=== PATIENT | male | born 1995 | race Caucasian/White ===

== ENCOUNTER 2023-03-01 10:16 | Emergency (ER) | payer BC, SELFPAY ==
[2023-03-01 10:27] VITALS: BP 139/86; BP 140/96; PULSE 70; PULSE 76; RESP 14; TEMP 36.7; O2SAT 95; O2SAT 96; BMI 34.4
--- NOTE | 2023-03-01 10:47 | ED.DIZZY ---
HPI - Dizziness General Chief Complaint: Dizziness Stated Complaint: ONSET DIZZINESS Time Seen by Provider: 03/01/23 10:27 Source: patient and EMS Mode of arrival: EMS Limitations: no limitations History of Present Illness HPI Narrative: 27-year-old male who is otherwise healthy came in by ambulance for evaluation of sudden onset of multiple episodes of near-syncope. 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 Patient was at his normal health baseline until this episode happened. No fever, no chills, no chest pain, no headache, no recent sickness, no sick contacts. Patient recently traveled from [facility]. Related Data Allergies Allergy/AdvReac Type Severity Reaction Status Date / Time No Known Allergies Allergy Verified 03/01/23 10:39 Review of Systems Review of Systems: All other systems are reviewed and are negative Constitutional: Reports as per HPI and Reports no additional constitutional complaints Eyes: Reports as per HPI and Reports no additional eye complaints Reports system reviewed and no additional complaints, except as documented Cardiovascular: Reports as per HPI and Reports no additional cardiovascular complaints Respiratory: Reports as per HPI and Reports no additional respiratory complaints Gastrointestinal: Reports as per HPI and Reports no additional gastrointestinal complaints Genitourinary: Reports no additional female genitourinary complaints Musculoskeletal: Reports no additional musculoskeletal complaints Skin/Breast: Reports system reviewed and no additional complaints, except as docu Psychiatric: Reports no additional psychiatric complaints Endocrine: Reports no additional endocrine complaints Hematologic/Lymphatic: Reports no additional hematologic/lymphatic complaints Allergic/Immunologic: Reports no additional allergic/immunologic complaints Reports system reviewed and no additional complaints, except as documented and Reports Abnormal speech present [facility] Social History Social History Advance Directives: No Advance Directives Information Provided: Yes Physical Exam Vital Signs: Vital Signs: Last Vital Signs Temp 98.1 F 03/01/23 13:43 Pulse 70 03/01/23 13:43 Resp 22 H 03/01/23 13:43 BP 122/78 03/01/23 13:43 Pulse Ox 97 03/01/23 13:43 O2 Del Method Room Air 03/01/23 13:43 BMI result Body Mass Index 34.4 Vital signs have been reviewed as appeared to be correct. Blood pressure normal. Heart rate normal. Respiration rate normal. Temperature normal. Oxygen saturation normal. Appearance: Alert. Oriented X3. No acute distress. Head: Normal external exam. Normocephalic. Atraumatic. No Kerr signs noted. No raccoon eyes noted Eyes: PERRLA. EOMI. Conjunctiva and sclera normal. Eyelids normal. ENT: TM's Normal. Pharynx normal. Uvula midline. Dry mucous membranes. No trismus noted. No drooling noted. No muffled voice noted. Neck: Normal inspection. Neck supple. FROM. No adenopathy. Thyroid Normal. No meningeal signs. No neck mass noted. CVS: Normal heart rate and rhythm. Heart sound normal. No murmurs noted. Pulses normal throughout. Respiratory: No respiratory distress. Painless inspiration. Breath sounds normal. No wheezes/rales/rhonchi noted. Chest nontender. No accessory muscle usage noted or decreased air movement noted. Abdomen: Soft and nontender. Bowel sounds normal in all 4 quadrants. No distention noted. No organomegaly noted. No visible injury noted. Back: No CVA tenderness. Full range of motion noted. Skin: Skin warm and dry. Normal skin color. Normal skin turgor. No rashes/lesions/lacerations noted. Extremities: No lower extremity edema. Extremities exhibit normal range of motion. Extremities nontender. Neuro: Oriented X 3. Cranial nerve exam: II-XII are grossly intact No motor deficit. No sensory deficit. Reflexes normal. Course Reevaluation(s) Reevaluation #1: Feels better after IV hydration, able to tolerate p.o. intake, patient was instructed to avoid hot with her and drink plenty of fluid. Time: 14:13 Medications Administered Discontinued Medications Generic Name Dose Route Start Last Admin Trade Name Freq PRN Reason Stop Dose Admin Sodium Chloride 1,000 mls @ 999 mls/hr 03/01/23 10:39 03/01/23 12:14 Ns IV 03/01/23 11:39 Infused .Q1H1M ONE Infusion Medical Decision Making Differential Diagnosis Differential Diagnoses: The differential diagnosis associated with the presentation includes (Dehydration, electrolyte abnormality, severe anemia, ACS, pulmonary embolism.) Admission/Observation Consideration of admission/observation: Escalation of care including admission/observation considered Lab Data MDM Lab Attestation statement: I reviewed the patient's lab results. 03/01/23 11:04 03/01/23 11:04 Labs: Lab Results 03/01/23 03/01/23 03/01/23 Range/Units 11:04 11:04 11:04 WBC 9.3 (4.8-10.8) X10*3/uL RBC 4.85 (4.60-5.80) X10*6/uL Hgb 15.1 (14.0-18.0) g/dl Hct 43.8 (42.0-52.0) % MCV 90.3 (80.0-98.0) fL MCH 31.1 (27.0-33.0) pg MCHC 34.5 (31.0-36.0) g/dl RDW 12.1 (11.0-16.0) % Plt Count 373 (160-400) X10*3/uL MPV 8.6 L (9.4-12.4) fL Immature Gran % (Auto) 0.4 (0.0-0.4) % Neut % (Auto) 62.9 (45-73) % Lymph % (Auto) 28.1 (20-40) % Bailey % (Auto) 6.5 (2-11) % Eos % (Auto) 1.2 (0-4) % Baso % (Auto) 0.9 (0-2) % Lymph # (Auto) 2.6 (1.2-4.9) X10*3/uL Bailey # (Auto) 0.6 (0.1-1.2) X10*3/uL Eos # (Auto) 0.1 (0.0-0.4) X10*3/uL Baso # (Auto) 0.1 (0.0-0.2) X10*3/uL Abs Immat Gran (auto) 0.04 H (0.00-0.03) X10*3/uL Absolute Neuts (auto) 5.9 (2.0-8.3) x10*3/uL Absolute Nucleated RBC 0.000 (0.0-0.012) X10*3/uL Nucleated RBC % (auto) 0.0 (0.0-0.2) /100WBC D-Dimer High Sensitivty NG/ML Sodium 141 (135-145) mmol/L Potassium 4.0 (3.3-5.1) mmol/L Chloride 105 (96-108) mmol/L Carbon Dioxide 24 (22-29) mmol/L Anion Gap 16 (12-20) BUN 12 (9-16) mg/dL Creatinine 1.15 (0.5-1.4) mg/dL Estim Creat Clear Calc 114.5 Estimated GFR > 60 Random Glucose 93 (60-115) mg/dL Calcium 10.2 (8.4-10.2) mg/dL Total Bilirubin 0.7 (0.0-1.0) mg/dL Direct Bilirubin 0.2 (0.0-0.5) mg/dL AST 32 (5-37) U/L ALT 58 H (0-40) U/L Alkaline Phosphatase 91 (39-117) U/L Troponin I High Sens < 2.7 (<3.5-35.0) ng/L B-Natriuretic Peptide (<100) pg/mL Total Protein 7.8 (6.5-8.0) g/dL Albumin 4.9 (3.5-5.0) g/dL Lipase 23 (8-78) U/L 03/01/23 03/01/23 Range/Units 11:04 12:26 WBC (4.8-10.8) X10*3/uL RBC (4.60-5.80) X10*6/uL Hgb (14.0-18.0) g/dl Hct (42.0-52.0) % MCV (80.0-98.0) fL MCH (27.0-33.0) pg MCHC (31.0-36.0) g/dl RDW (11.0-16.0) % Plt Count (160-400) X10*3/uL MPV (9.4-12.4) fL Immature Gran % (Auto) (0.0-0.4) % Neut % (Auto) (45-73) % Lymph % (Auto) (20-40) % Bailey % (Auto) (2-11) % Eos % (Auto) (0-4) % Baso % (Auto) (0-2) % Lymph # (Auto) (1.2-4.9) X10*3/uL Bailey # (Auto) (0.1-1.2) X10*3/uL Eos # (Auto) (0.0-0.4) X10*3/uL Baso # (Auto) (0.0-0.2) X10*3/uL Abs Immat Gran (auto) (0.00-0.03) X10*3/uL Absolute Neuts (auto) (2.0-8.3) x10*3/uL Absolute Nucleated RBC (0.0-0.012) X10*3/uL Nucleated RBC % (auto) (0.0-0.2) /100WBC D-Dimer High Sensitivty < 150 NG/ML Sodium (135-145) mmol/L Potassium (3.3-5.1) mmol/L Chloride (96-108) mmol/L Carbon Dioxide (22-29) mmol/L Anion Gap (12-20) BUN (9-16) mg/dL Creatinine (0.5-1.4) mg/dL Estim Creat Clear Calc Estimated GFR Random Glucose (60-115) mg/dL Calcium (8.4-10.2) mg/dL Total Bilirubin (0.0-1.0) mg/dL Direct Bilirubin (0.0-0.5) mg/dL AST (5-37) U/L ALT (0-40) U/L Alkaline Phosphatase (39-117) U/L Troponin I High Sens (<3.5-35.0) ng/L B-Natriuretic Peptide 10 (<100) pg/mL Total Protein (6.5-8.0) g/dL Albumin (3.5-5.0) g/dL Lipase (8-78) U/L Independent Interpretation I performed an independent interpretation of an: Plain X-Ray (Chest: No acute intra thoracic pathology.) Radiology Impression Discussion of test interpretation with radiology: I have reviewed the radiologist's reading. Discharge Plan Discharge Clinical Impression: Acute dehydration, Near syncope Patient Disposition: Home, Self-Care Instructions: Dehydration (ED), Near Syncope (ED) Additional Instructions: Drink plenty of fluid, avoid hot weather. Referrals: Physician,Unknown J [Primary Care Provider] -
[2023-03-01 11:36] VITALS: BP 118/65; PULSE 75
[2023-03-01 11:39] VITALS: BP 116/74; PULSE 75
[2023-03-01 11:44] VITALS: BP 114/81; PULSE 68
--- NOTE | 2023-03-01 11:44 | PC.NURSE ---
pt endorses dizziness at rest, aox4. calm, cooperative. no other defecits. orthos charted. report handoff given to next shift.
[2023-03-01 13:43] VITALS: BP 122/78; PULSE 70; RESP 22; TEMP 36.7; O2SAT 97
== END 2023-03-01 14:52 | disposition home or self-care (01) ==
PROVIDERS: Emergency Provider Emergency Medicine
DX: E86.0 Dehydration (principal); R55 Syncope and collapse
CPT/HCPCS: 36415; 71045; 80048; 80076; 83690; 83880; 84484; 85025; 85379; 93005; 96360; 99284

== ENCOUNTER 2023-03-15 06:57 | Emergency (ER) | payer OTHER, BC, SELFPAY ==
--- NOTE | ~2023-03-15 | XR_ITS ---
EXAMINATION: XR ANKLE, RIGHT CLINICAL INFORMATION: Injury COMPARISON: None available. TECHNIQUE: AP, lateral, and mortise views of the right ankle. FINDINGS: No fracture. Alignment is anatomic. No erosions. Joint spaces are maintained. Soft tissues are normal. XR/XR ankle RT 2V IMPRESSION: Normal right ankle.
[2023-03-15 07:08] VITALS: BP 139/92; PULSE 78; RESP 16; TEMP 36.4; O2SAT 97; BMI 35.2
--- NOTE | 2023-03-15 07:40 | ED.LOWEXIN ---
HPI - Extremity Injury (Lower) General Chief Complaint: Extremity Injury, Lower Stated Complaint: r ankle inj at work Time Seen by Provider: 03/15/23 07:17 Source: patient Mode of arrival: ambulatory Limitations: no limitations History of Present Illness HPI Narrative: This is a 27 years old male presented to the emergency department complaining of right ankle pain, he states that sprained ankle yesterday at work. complaint: other (rt ankle) Onset (ago): day(s) (1) Type of Injury: blunt Place: work Severity: moderate Relieving factors: nothing Context: fall Other symptoms: none Related Data Allergies Allergy/AdvReac Type Severity Reaction Status Date / Time No Known Allergies Allergy Verified 03/01/23 10:39 Review of Systems Constitutional: Constitutional: Reports no additional constitutional complaints Eyes: Eyes: Reports as per HPI ENT: Reports system reviewed and no additional complaints, except as documented Respiratory: Respiratory: Reports no additional respiratory complaints PMFSH Social History Social History Smoked in Last 30 Days: No Use of substances other than those prescribed or required for medical reasons: No Advance Directives: No Advance Directives Information Provided: No Physical Exam Vital Signs: Vital Signs: Last Vital Signs Temp 98.5 F 03/15/23 09:15 Pulse 78 03/15/23 09:15 Resp 16 03/15/23 09:15 BP 145/91 H 03/15/23 09:15 Pulse Ox 98 03/15/23 09:15 O2 Del Method Room Air 03/15/23 09:15 BMI result Body Mass Index 35.2 Const: General: cooperative Nutritional Appearance: well nourished Orientation/consciousness: patient oriented x3 HEENT: Head: Yes normal to inspection Ears: hearing grossly normal bilaterally Face and sinus: Yes normal facial exam Mouth: Normal oral and palatal mucosa present Neck: Neck: Yes normal visual inspection Resp: Effort & Inspection: normal respiratory effort Auscultation: clear to auscultation bilaterally Cardio: Jugular venous distension: no JVD Rate: regular rate Rhythm: regular rhythm GI: Inspection: Yes normal to inspection Palpation (GI): Soft to palpation, not firm and nontender Percussion: Yes normal to percussion Auscultation: normal bowel sounds Neuro: General: patient oriented x3 Extrem: Other: Tenderness in the right ankle no deformity good pedal pulses Course Reevaluation(s) Reevaluation #1: X-ray negative will discharge home Time: 09:00 Medical Decision Making Medical Decision Making MDM Narrative: Present presented with the ankle injury will get x-ray and reassess Differential Diagnosis Differential Diagnoses: The differential diagnosis associated with the presentation includes Ankle fracture/ankle dislocation/ankle sprain Admission/Observation Consideration of admission/observation: Escalation of care including admission/observation considered Independent Interpretation I performed an independent interpretation of an: Plain X-Ray Interpretation: I reviwed the x-ray I agree with the radiology reading Radiology Impression Discussion of test interpretation with radiology: I have reviewed the radiologist's reading. Prescription Management I considered prescription management with: Pain Medication Discharge Plan Discharge Clinical Impression: Ankle sprain and strain Patient Disposition: Home, Self-Care Instructions: Ankle Sprain (DC) Additional Instructions: ICE/rest/elevation Referrals: Physician,None [Primary Care Provider] - 3 days Stand Alone Forms: Work/School Release
[2023-03-15 09:15] VITALS: BP 145/91; PULSE 78; RESP 16; TEMP 36.9; O2SAT 98
== END 2023-03-15 09:23 | disposition home or self-care (01) ==
PROVIDERS: Emergency Provider Emergency Medicine
DX: S93.401A Sprain of unspecified ligament of right ankle, initial encounter (principal); X58.XXXA Exposure to other specified factors, initial encounter; Y93.9 Activity, unspecified; Y92.9 Unspecified place or not applicable; Y99.0 Civilian activity done for income or pay; M25.571 Pain in right ankle and joints of right foot
CPT/HCPCS: 73600; 99283; 99284

== ENCOUNTER 2023-04-14 09:22 | Emergency (ER) | payer OTHER, BC, SELFPAY ==
--- NOTE | ~2023-04-14 | XR_ITS ---
EXAMINATION: XR ANKLE, RIGHT CLINICAL INFORMATION: Right ankle injury. COMPARISON: 03/15/2023 right ankle radiograph. TECHNIQUE: AP, lateral, and mortise views of the right ankle. An indicator arrow points to the lateral malleolus. FINDINGS: No fracture. Alignment is anatomic. No erosions. Joint spaces are maintained. Soft tissues are normal. XR/XR ankle RT min 3V IMPRESSION: Unremarkable right ankle.
[2023-04-14 09:26] VITALS: BP 155/98; PULSE 82; RESP 16; TEMP 36.3; O2SAT 96; BMI 34.5
--- NOTE | 2023-04-14 09:37 | ED.LOWEXIN ---
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 Denies fall to ground, direct trauma, head trauma or LOC. Denies numbness, tingling, weakness. Ambulating with limping gait complaint: ankle injury Related Data Allergies Allergy/AdvReac Type Severity Reaction Status Date / Time No Known Allergies Allergy Verified 03/01/23 10:39 Review of Systems Review of Systems: Constitutional: No Fever, No Chills Cardiovascular: No Chest Pain, No SOB Respiratory: No Cough, No Sputum, No Wheezing Musculoskeletal: + joint pain, No Myalgias, + Joint Swelling Skin: No Skin Lesions, No rash Neuro: No Weakness, No Numbness, No Paresthesias Yes all other systems are reviewed and are negative Constitutional: Constitutional: Reports as per HPI [facility] Past Medical History Attestation statement: The following information was validated with the patient. Source: old records reviewed Social History Social History Advance Directives: No Advance Directives Information Provided: No Physical Exam Vital Signs: Vital Signs: Last Vital Signs Temp 97.3 F 04/14/23 09:26 Pulse 82 04/14/23 09:26 Resp 16 04/14/23 09:26 BP 155/98 H 04/14/23 09:26 Pulse Ox 96 04/14/23 09:26 O2 Del Method Room Air 04/14/23 09:26 BMI result Body Mass Index 34.5 Const: General: cooperative, healthy appearing and no acute distress Orientation/consciousness: patient oriented x3 Limitations: no limitations HEENT: Head: Yes normal to inspection and Yes atraumatic Ears: hearing grossly normal bilaterally General nose exam: Normal external nose present Face and sinus: Yes normal facial exam Eyes: General: appearance normal, both eyes and all related structures EOM: EOMs intact bilaterally Neck: Neck: Yes normal visual inspection and Yes no meningeal signs Resp: Effort & Inspection: normal respiratory effort and no respiratory distress Cardio: Rate: regular rate Peripheral pulses: Peripheral pulses 2+ throughout Skin: Rashes: no rashes Wounds: no wounds Neuro: General: patient oriented x3, tone normal and no meningeal signs Cranial nerves: Yes CN's II-XII intact bilaterally Gait exam (Neuro): Normal gait present Extrem: Other: Right ankle with mild lateral malleolar swelling and tenderness. Limited ROM secondary to pain. Neurovascular intact distally. No erythema/warmth. Knee/tib-fib nontender. foot nontender Course Course Course Narrative: XR ankle RT min 3V IMPRESSION: Unremarkable right ankle. > patient has air cast already in the ED as well as crutch, will supply with work no and orthopedic follow-up as needed Results discussed with patient including worrisome signs and symptoms and strict return precautions, and when to return to the emergency department. They verbalized understanding and feel safe for discharge at this time. 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 On exam vital signs stable, NAD, nontoxic appearing, physical exam as above. Concern for ankle sprain, rule out fracture. Low suspicion for septic joint/arthritis or DVT Plan: X-rays Please refer to course for remaining clinical decision making, interpretation of labs/imaging results, and discussions with consultants and/or family members. Differential Diagnosis Differential Diagnoses: The differential diagnosis associated with the presentation includes As above Independent Interpretation I performed an independent interpretation of an: Plain X-Ray Radiology Impression Discussion of test interpretation with radiology: I have reviewed the radiologist's reading. External Record Review External record reviewed: Inpatient record, Office record, Outpatient record, Prior outpatient labs, Prior outpatient radiology, Primary care record and Outside ED record Tests considered The following testing was considered but not selected: As above Prescription Management I considered prescription management with: Pain Medication Discharge Plan Discharge Clinical Impression: Ankle sprain and strain Patient Disposition: Home, Self-Care Instructions: Ankle Sprain (DC) Additional Instructions: Your x-ray does not show fracture, use range her ankle Continue to wear the air cast and use crutches as needed. Ice and elevate To Tylenol /Motrin Follow-up with her doctor and Orthopedics as needed Referrals: [facility] [place] Orthopedic Surgeons [Provider Group] Physician,None [Primary Care Provider] - Stand Alone Forms: Work/School Release Interventions: ED Discharge Assessment Last Done: 04/14/23 10:21 Discharge Date/Time: 04/14/23 10:22
== END 2023-04-14 10:22 | disposition home or self-care (01) ==
PROVIDERS: Emergency Provider Emergency Medicine
DX: S93.401A Sprain of unspecified ligament of right ankle, initial encounter (principal); M25.571 Pain in right ankle and joints of right foot; X50.1XXA Overexertion from prolonged static or awkward postures, initial encounter; Y93.9 Activity, unspecified; Y92.9 Unspecified place or not applicable; Y99.0 Civilian activity done for income or pay
CPT/HCPCS: 73610; 99283

== ENCOUNTER 2023-05-02 08:58 | Outpatient (AMB) | payer BC, SELFPAY ==
--- NOTE | 2023-05-02 09:01 | A.OFFVIS_ITS ---
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 He has intermittent pain with a pain level 4-5 out of 10. Driving increases his pain and causes his pain to radiates up his leg. His pain is located at the lateral aspect of ankle. No other tx. 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 He states he has intermittent pain in the lateral aspect of his ankle and rates the pain as 4 on the scale of 0-10. His pain is aggravated with driving which causes his pain to radiate up his leg. He has not had any treatment in the past. He is still working with light duty restrictions. [facility] Social History (Updated 05/02/23 @ 09:07 by Mariella Hayes Asaf) Patient Tobacco Use Status: Never used Tobacco Current occupation: [employer] Review of Systems Const All systems reviewed & are unremarkable except as noted in HPI and below Physical Exam Vital Signs: BMI result Body Mass Index 34.4 Const General: cooperative, healthy appearing, comfortable, no acute distress, well developed and alert Orientation/consciousness: patient oriented x3 HEENT Head: Yes normal to inspection, Yes normocephalic and Yes atraumatic Eyes General: appearance normal, both eyes and all related structures Resp Effort & Inspection: normal respiratory effort and able to speak in complete sentences Cardio Rate: regular rate Peripheral pulses: Peripheral pulses 2+ throughout GI Palpation (GI): Soft to palpation Skin Lesions: no lesions Rashes: no rashes Neuro General: patient oriented x3 Extrem Other: Right ankle: Normal to inspection. He does have some tenderness along the soft tissue of lateral malleolus. No bony tenderness. No tenderness along the medial malleolus or the syndesmosis. He does have full ROM but some weakness with inversion against resistance. NVI. Results Reviewed Results Reviewed: xrays of the right ankle obtained on 04/14/23 show intact ankle mortise, no dislocations or fracture Assessment & Plan Assessment & Plan (1) Right ankle sprain: Code(s): S93.401A - Sprain of unspecified ligament of right ankle, initial encounter Qualifiers: Encounter type: initial encounter Involved ligament of ankle: anterior talofibular ligament Qualified Code(s): S93.491A - Sprain of other ligament of right ankle, initial encounter Plan We discussed options which include PT, NSAIDs and injections. The patient will defer on the injection today and proceed with PT and NSAIDs. If symptoms pers ist, the patient will contact me for an injection. He was also fit for a lace up ASO brace in the office today. He will continue with work with but with light duty restrictions and no driving for more than 3 hours a day. He will see me back in 6-8 weeks for a follow-up. Orders: Orders PT Evaluation and Treatment 05/02/23 S93.401A - Sprain of unspecified ligament of right ankle, initial encounter Patient Instructions: Scribed for Niki Bull PA-C, by Pankaj Bingham medical equipment technician, on 05/02/2023 at 9:15 AM EST. INiik PA-C, have personally reviewed and agree with the information entered by the scribe. Coding Level of Care Code New Pt Level 3 (02909) Diagnoses Sprain of anterior talofibular ligament of right ankle, initial encounter S93.491A Encounter type: initial encounter Involved ligament of ankle: anterior talofibular ligament
[2023-05-02 09:07] VITALS: BMI 34.4
== END 2023-05-02 10:07 | disposition home or self-care (01) ==
PROVIDERS: Visit Provider Physician Assistant
DX: S93.491A Sprain of other ligament of right ankle, initial encounter (principal)
CPT/HCPCS: 99203

== ENCOUNTER → 2023-05-02 08:58 | Outpatient (BNVA) | payer OTHER, BC, SELFPAY | PROVIDERS: Visit Provider Physician Assistant ==

== ENCOUNTER 2023-06-12 08:33 | Outpatient (AMB) | payer OTHER, BC, SELFPAY ==
[2023-06-12 08:41] VITALS: BMI 34.4
--- NOTE | 2023-06-12 08:41 | MHC.OFFVIS ---
Intake Vital Signs 06/12/23 08:41 Height 5 ft 9 in Weight 233 lb BMI 34.4 Intake Visit Reasons: OV-f/u right ankle sprain Intake Note: Hernando a 28 year old male who presents today for a follow up of right ankle WC injury, DOI 04/11/23. Patient reports he is doing well, states his pain comes with straining or continues activity. He continues to work with PT. Allergies No Known Allergies Allergy (Verified 06/12/23 08:51) HPI OV-f/u right ankle sprain HPI Details 28-year-old male who returns to the office today for a follow-up of right ankle injury, 04/11/23. He states he has improvement since his last visit but he continues to have pain with straining, prolonged walking or continuous activities. He is working with physical therapy as instructed. He is doing well overall and has no concerns today. [facility] [place] Social History Patient Tobacco Use Status: Never used Tobacco Current occupation: [employer] Review of Systems Const All systems reviewed & are unremarkable except as noted in HPI and below Physical Exam Vital Signs: BMI result Body Mass Index 34.4 Const General: cooperative, healthy appearing, comfortable, no acute distress, well developed and alert Orientation/consciousness: patient oriented x3 HEENT Head: Yes normal to inspection, Yes normocephalic and Yes atraumatic Eyes General: appearance normal, both eyes and all related structures Resp Effort & Inspection: normal respiratory effort and able to speak in complete sentences Cardio Rate: regular rate Peripheral pulses: Peripheral pulses 2+ throughout GI Palpation (GI): Soft to palpation Skin Lesions: no lesions Rashes: no rashes Neuro General: patient oriented x3 Extrem Other: Right ankle: Normal to inspection. He does have some tenderness along the soft tissue of lateral malleolus. No bony tenderness. No tenderness along the medial malleolus or the syndesmosis. He does have full ROM but some weakness with inversion against resistance. NVI. Assessment & Plan Assessment & Plan (1) Right ankle sprain: Code(s): S93.401A - Sprain of unspecified ligament of right ankle, initial encounter Qualifiers: Encounter type: initial encounter Involved ligament of ankle: anterior talofibular ligament Qualified Code(s): S93.491A - Sprain of other ligament of right ankle, initial encounter Plan He is going to continue working with physical therapy to improve her ROM and strengthening. He will increase activity as tolerated and return to work full duty on July 14. I did encourage continuing with ice, ibuprofen and Motrin as needed for swelling and discomfort. He will follow-up as needed unless there are questions or concerns. Patient Instructions: Scribed for Niki Bull PA-C, by Pankaj Bingham medical assistant secretary, on 06/12/2023 at 9:00 AM JENN. Renzo, Niki Bull PA-C, have personally reviewed and agree with the information entered by the scribe. Coding Level of Care Code Est Pt Level 3 (91065) Diagnoses Sprain of anterior talofibular ligament of right ankle, initial encounter S93.491A Encounter type: initial encounter Involved ligament of ankle: anterior talofibular ligament
== END 2023-06-12 09:18 | disposition home or self-care (01) ==
PROVIDERS: Visit Provider Physician Assistant
DX: S93.491A Sprain of other ligament of right ankle, initial encounter (principal)
CPT/HCPCS: 99213

== ENCOUNTER → 2023-06-12 08:33 | Outpatient (BNVA) | payer OTHER, BC, SELFPAY | PROVIDERS: Visit Provider Physician Assistant | DX: S93.401D Sprain of unspecified ligament of right ankle, subsequent encounter (principal) | CPT/HCPCS: 99212 ==

== ENCOUNTER 2023-07-07 16:00 | Outpatient (RCR) | payer OTHER, BC, SELFPAY ==
--- NOTE | 2023-05-15 17:41 | MHC.PT.EP ---
[facility] [place] Office [place] Office [place] Office [address] Kristine Costello [address] [phone] F: [phone] F: [phone] F: [phone] F: [phone] Physical Therapy Plan of Care Date of Evaluation: 05/15/23 Date of Surgery: Diagnosis: RIGHT ankle sprain Assessment: Patient is a pleasant 28 y.o. male who had a worker's compensation injury and is referred to PT by Niki Bull PA-C, with Dx of LEFT ankle sprain. Patient impairments include pain, localized swelling lateral malleoli, limited ROM, weakness, antalgic gait. Patient current functional limitations are stair use, prolonged standing (20 mins), walking, driving long distances, and squat. Patient will benefit from skilled PT to address aforementioned impairments and functional limitations to meet established goals. Frequency and Duration: The patient will be seen 2x/week for 4 weeks Short Term Goals: 2 weeks Patient demonstrates consistency and independence with HEP to self manage symptoms. Patient presents with increased R ankle DF 0 degrees to normalize gait pattern without brace use. Assisted Goals: 4 weeks Patient presents with increased R ankle DF 10 degrees to be able to ascend/descend 1 flight reciprocally. Patient presents with increased R ankle inversion/eversion 5/5 to be able to ambulate on unlevel surfaces without brace. Treatment Plan: Modalities to reduce pain, spasms and effusion. Manual therapy to restore motion and function. Therapeutic exercise to improve strength and flexibility. Neuromuscular re-education for posture and balance. Therapeutic activities to return to functional activities of daily living. Electronically signed by: Marlene Nathan, PT, DPT Please sign and return to therapist. Thank you for your referral.
--- NOTE | 2023-07-15 13:32 | MHC.PT.DC ---
[facility] [place] Office [place] Office [place] Office [address] Kristine Costello [address] [phone] F: [phone] F: [phone] F: [phone] F: [phone] Physical Therapy Discharge Report Diagnosis: RIGHT ankle sprain Date of Surgery: Date of Evaluation: 05/15/23 Date of Discharge: 07/15/23 Treatments to Date: 15 Cancellations to Date: No Shows to Date: Discharge Status: Achieved Goals Improved Function Independent with HEP Discharge Summary: Pt independent w/HEP and negar 50# lift carry on 10 steps w/o px. STRENGTH 5/5 R ankle and AROM N all mvts. Patient is discharged from PT at this time. Electronically signed by: Marlene aNthan, PT, DPT Please sign and return to therapist. Thank you for your referral.
== END 2023-07-15 13:33 | disposition home or self-care (01) ==
LOC: HO.PT 16:00
PROVIDERS: Visit Provider Physician Assistant
DX: S93.401D Sprain of unspecified ligament of right ankle, subsequent encounter (principal)
CPT/HCPCS: 97035; 97110; 97112; 97140; 97161; 97530